=== PATIENT | female | born 1955 | race Caucasian/White ===

== ENCOUNTER 2022-04-12 10:38 | Outpatient (CLI) | payer OTHER, BC | END 2022-04-12 19:44 | disposition home or self-care (01) | LOC: SCT 10:38 | DX: M47.24 Other spondylosis with radiculopathy, thoracic region (principal); M41.84 Other forms of scoliosis, thoracic region; K76.89 Other specified diseases of liver; R60.1 Generalized edema; N32.89 Other specified disorders of bladder; N85.4 Malposition of uterus; J98.11 Atelectasis; M43.16 Spondylolisthesis, lumbar region; M41.86 Other forms of scoliosis, lumbar region; R10.0 Acute abdomen; M47.27 Other spondylosis with radiculopathy, lumbosacral region; I51.7 Cardiomegaly; E04.1 Nontoxic single thyroid nodule | CPT/HCPCS: 72128; 72131; 76376 ==